=== PATIENT | male | born 1930 | race Caucasian/White ===

== ENCOUNTER 2017-06-16 16:15 | Observation (INO) | payer MEDICARE ==
[2017-06-16 17:04] LABS: Bilirubin Negative (Negative); Blood, Urine Negative (Negative); Glucose, Urine (Dipstick) Negative (Negative); Ketone, Urine Negative (Negative); Nitrite Negative (Negative); Protein, Urine (Dipstick) Negative (Neg-Trace)
[2017-06-16 17:26] LABS: #Eosinphils 0.1 thou/uL (0.0-0.7); #Lymphocytes 1.2 thou/uL (1.20-3.40); #Monocytes 0.6 thou/uL (0.11-0.59); #Neutrophils 4.1 thou/uL (1.40-6.50); %Basophils 0.2 % (0.0-1.0); %Eosinophils 1.9 % (0.0-10.0); %Lymphocytes 20.1 % (21.0-51.0); %Monocytes 10.5 % (0.0-10.0); Hematocrit 35.4 % (42.0-52.0); Mean Platelet Volume 8.5 fL (7.4-10.4); Red Blood Cell (RBC) Count 3.87 mill/uL (4.70-6.10)
[2017-06-16 17:48] LABS: ALT (SGPT) 17 U/L (8-55); AST (SGOT) 16 U/L (5-34); Alkaline Phosphatase 97 U/L (40-150); Anion Gap 17 mmol/L (10-20); BUN (Urea Nitrogen) 48 mg/dL (8.4-25.7); Bilirubin, Total 0.6 mg/dL (0.2-1.2); Calc. Creatinine Clearance 0 mL/min (70-130); Calcium 9.5 mg/dL (7.8-10.44); Carbon Dioxide 24 mmol/L (23-31); Chloride 103 mmol/L (98-107); Estimated GFR-MDRD 44; Globulin 2.8 g/dL (2.4-3.5); Protein, Total 6.4 g/dL (5.8-8.1)
[2017-06-16 17:51] LABS: Troponin I 0.041 ng/mL (< 0.028)
--- NOTE | 2017-06-16 17:57 | RAD ---
PORTABLE CHEST: Date: 06/16/17 PROVIDED CLINICAL HISTORY: Dyspnea. FINDINGS: Correlation made with CT examination of the chest dated 02/17/17. 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 The cardiac silhouette remains enlarged. Median sternotomy changes are again seen. There is persistent elevation of the left hemidiaphragm. There is no lobar consolidation , pleural fluid, or pneumothorax apparent. IMPRESSION: Aneurysmal dilatation of the thoracic aorta, appearing similar to the CT examination of 02/17/17. POS: [facility]
--- NOTE | 2017-06-16 18:16 | CT ---
CT BRAIN: Date: 06/16/17 PROVIDED CLINICAL HISTORY: Altered mental status. FINDINGS: No comparisons. The ventricular system appears prominent, likely on the basis of central atrophy. There is no evidenc e for intracranial hemorrhage or mass effect. The extracranial soft tissues and osseous structures de monstrate no acute abnormality. Partial opacification of the ethmoid air cells is noted with a somewh at expansile appearance to this opacification to the right of midline, nonspecific. Chronic microvasc ular ischemic changes are seen. IMPRESSION: No evidence for intracranial hemorrhage or mass effect. POS: [facility]
[2017-06-16] MEDS ORDERED: Furosemide 40 MG/4 ML VIAL ONE (19:07)
[2017-06-16] MEDS ORDERED: Guaifenesin DM 100-10/5 ML UDCUP PO PRN (20:34)
[2017-06-16] MEDS ORDERED: Insulin Regular 300 UNITS/3 ML VIAL SC PRN (20:37)
[2017-06-16] MEDS ORDERED: Dextrose 50% Abboject 50 ML SYRINGE SLOW IVP PRN (20:37)
[2017-06-16] MEDS ORDERED: Dextrose 5% in Water 1,000 ML IV PRN (20:37)
[2017-06-16] MEDS: Apixaban 5 MG TAB PO SCH (21:14)
[2017-06-16] MEDS ORDERED: Ondansetron HCl/PF 4 MG/2 ML Vial IVP PRN (21:41)
[2017-06-16] MEDS ORDERED: Ondansetron ODT 4 MG TAB SL PRN (21:41)
[2017-06-16 21:52] LABS: Troponin I 0.053 ng/mL (< 0.028)
[2017-06-16] MEDS ORDERED: cefTRIAXone\\ROCEPHIN 1 GM in Sterile Water 10 ML SLOW IVP SCH (22:00)
[2017-06-16 22:14] VITALS: BMI 19.8
--- NOTE | 2017-06-16 23:29 | HP ---
DATE OF ADMISSION: 06/16/2017 ADMITTING PHYSICIAN: Clyde Pedraza M.D. PRIMARY CARE PHYSICIAN: Edd Yao M.D. CHIEF COMPLAINT: Mental status changes as well as weakness. HISTORY OF PRESENT ILLNESS: The patient is a pleasant 86-year-old brought in by his family who repor ts that beginning last night he had become more confused and was actually having visual hallucination s. The patient is at baseline mentally during my exam. His family is at the bedside and reports kristen t he is completely coherent now, but that he has been complaining of sore throat with productive coug h and increased lethargy over the last 2 days. He did fall approximately one month ago and sustained trauma to the left orbit as well as his head. The patient does have a history of CHF and is a patie nt of Dr. Albert. At this time, his complaints are only the increased lethargy, the hallucinations and the productive cough and nasal congestion. REVIEW OF SYSTEMS: The following complete review of systems was negative, unless otherwise mentioned in the HPI or below: Constitutional: Weight loss or gain, sense of well-being, ability to conduct usual activities, exerc ise tolerance. Skin/Breast: Rash, itching, changes in hair growth or loss, nail changes, breast lumps, tenderness, swelling, nipple discharge. Eyes: Vision, double vision, tearing, blind spots, pain. ENT/Mouth: Headaches (location, time of onset, duration, precipitating factors), vertigo, lightheade dness, injury. Vision, double vision, tearing, blind spots, pain, nose bleeding, colds, obstruction, discharge, dental difficulties, gingival bleeding, dentures, neck stiffness, pain, tenderness, masses in thyroid or other areas. Cardiovascular: Precordial pain, substernal distress, palpitations, syncope, dyspnea on exertion, or thopnea, nocturnal paroxysmal dyspnea, edema, cyanosis, hypertension, heart murmurs, varicosities, ph lebitis, claudication. Respiratory: Pain, shortness of breath, wheezing, stridor, cough, hemoptysis, fever or night sweats. Gastrointestinal: Poor appetite, dysphagia, indigestion, abdominal pain, heartburn, eructation, naus ea, vomiting, hematemesis, jaundice, constipation, or diarrhea, abnormal stools (rui-colored, tarry, bloody, greasy, foul smelling), flatulence, hemorrhoids, recent changes in bowel habits. Genitourinary: Urgency, frequency, dysuria, nocturia, hematuria, polyuria, oliguria, unusual (or lucrecia nge in) color of urine, stones, hesitancy, change in size of stream, dribbling, acute retention or in continence, libido, potency. Musculoskeletal: Pain, swelling, redness or heat of muscles or joints, limitation, of motion, muscul ar weakness, atrophy, cramps. Neurologic/Psychiatric: Convulsions, paralyses, tremor, incoordination, paresthesias, difficulties w ith memory of speech, sensory or motor disturbances, or muscular coordination (ataxia, tremor), emoti onal problems, anxiety, depression, previous psychiatric care, unusual perceptions, hallucinations. Allergy/Immunologic: Skin rash, anemia, bleeding tendency, polydipsia, polyuria, intolerance to heat or cold. PAST MEDICAL HISTORY: Significant for congestive heart failure, coronary artery disease, diabetes, d yslipidemia, hypertension, COPD, and abdominal aortic aneurysm. PAST SURGICAL HISTORY: Positive for hemorrhoidectomy, CABG x4, tonsillectomy. PSYCHIATRIC HISTORY: Positive for depression. SOCIAL HISTORY: The patient denies alcohol and illicit drug use. He does not smoke [facility] FAMILY HISTORY: Reviewed and noncontributory to this case. PHYSICAL EXAMINATION: VITAL SIGNS: Vital statics showed a temperature of 97.8, blood pressure 137/61, pulse 112, O2 sats 9 6% on room air with a respiratory rate of 22. GENERAL: He is pleasant, cooperative, alert and oriented. HEAD: Normocephalic. There is a hematoma to left orbit. EYES: PERRL. Extraocular muscles intact. ENT: Mouth is pink, moist, possible exudates in the tonsillar area. NECK: Supple, full range of motion. CHEST: No rhonchi, no wheezes. CARDIOVASCULAR: Sinus tachycardia with a grade 3/6 systolic ejection murmur. ABDOMEN: Nontender, nondistended. No rebound, no guarding. EXTREMITIES: No clubbing or cyanosis. There is 2+ edema bilaterally. NEUROLOGIC: Full range of motion of all extremities. PSYCHIATRIC: Alert and oriented x3. LABORATORY DATA AND IMAGES: Brain CT shows no evidence for intracranial hemorrhage or mass effect. Chest x-ray shows an aneurysmal dilatation of the thoracic aorta similar to an exam performed 017. The cardiac silhouette is enlarged with median sternotomy changes. No lobar consolidation, ple ural fluid, or pneumothorax. BNP of 1975. CK-MB of 0.6, troponin I of 0.04. CMP: Sodium 140, potassium 4.4, chloride 103, carbo n dioxide 24, BUN 48, creatinine 1.5, glucose 196, AST 16, ALT 17, lactic acid level of 4.0, CBC show s a white count of 6.0, hemoglobin 10.9, hematocrit 35.4, platelets 138. Urinalysis yellow and clear , negative for leukocytes, nitrites, ketones. ASSESSMENT: 1. Altered mental status. 2. Viral syndrome. 3. Possible superinfection with bacteria. 4. Coronary artery disease. 5. Hypertension. PLAN: The patient will be admitted to telemetry observation. The patient will be treated empiricall y with Levaquin for possible upper respiratory tract infection. At this time, the patient is tolerat ing p.o. and with history of congestive heart failure, I will hold off on IV fluids at this time. If at any point he becomes hypovolemic, we will use fluid resuscitation as needed. DVT prophylaxis iris l be with SCD devices.
[2017-06-17] MEDS: Acetaminophen 325 MG TAB PO PRN ×2 (01:15→05:11)
[2017-06-17 03:53] VITALS: TEMP 97.7
[2017-06-17] MEDS ORDERED: Insulin Regular 300 UNITS/3 ML VIAL SC PRN (05:01)
[2017-06-17 05:05] LABS: #Eosinphils 0.1 thou/uL (0.0-0.7); #Lymphocytes 1.3 thou/uL (1.20-3.40); #Monocytes 0.6 thou/uL (0.11-0.59); #Neutrophils 4.2 thou/uL (1.40-6.50); %Basophils 0.8 % (0.0-1.0); %Eosinophils 1.8 % (0.0-10.0); %Lymphocytes 20.1 % (21.0-51.0); Hematocrit 31.7 % (42.0-52.0); Mean Platelet Volume 8.5 fL (7.4-10.4); Red Blood Cell (RBC) Count 3.52 mill/uL (4.70-6.10); White Blood Cell (WBC) Count 6.2 thou/uL (4.8-10.8)
[2017-06-17 05:07] LABS: Anion Gap 14 mmol/L (10-20); BUN (Urea Nitrogen) 46 mg/dL (8.4-25.7); Calc. Creatinine Clearance 35 mL/min (70-130); Calcium 9.2 mg/dL (7.8-10.44); Carbon Dioxide 30 mmol/L (23-31); Chloride 99 mmol/L (98-107); Estimated GFR-MDRD 49
[2017-06-17] MEDS ORDERED: Furosemide 40 MG TAB PO SCH (06:00)
[2017-06-17] MEDS ORDERED: Carvedilol 6.25 MG TAB PO SCH (08:00)
--- NOTE | 2017-06-17 08:27 | PDOC.PN ---
- Subjective Encounter Start Date: 06/17/17 Encounter Start Time: 08:30 Subjective: Patient without confusion or hallucinations this AM. Did have what sounded -: like a vivid dream overnight about being sent to [place] for rehab, but then -: waking back up in the hospital room. - Objective MAR Reviewed: Yes Vital Signs & Weight: Vital Signs (12 hours) Temp Pulse Resp BP BP Pulse Ox 06/17/17 03:51 97.7 F 74 16 129/63 129/63 06/16/17 23:40 97.3 F L 77 20 147/69 H 94 L 06/16/17 22:00 97.6 F 111 H 18 127/72 95 06/16/17 20:54 97.6 F 111 H 18 127/72 95 Weight Admit Weight 142 lb Weight 142 lb I&O: 06/16/17 06/17/17 06/18/17 06:59 06:59 06:59 Intake Total 230 Output Total 1400 Balance -1170 Result Diagrams: 06/17/17 04:14 06/17/17 04:15 Additional Labs: Accuchecks 06/16/17 21:13 POC Glucose 245 H Phys Exam - Physical Examination Constitutional: NAD HEENT: moist MMs Respiratory: no wheezing, no rales, no rhonchi Cardiovascular: no significant murmur, irregular Gastrointestinal: soft, positive bowel sounds Neurological: non-focal, moves all 4 limbs Psychiatric: normal affect, A&O x 3 Dx/Plan (1) Encephalopathy acute Code(s): G93.40 - ENCEPHALOPATHY, UNSPECIFIED Status: Acute (2) Upper respiratory tract infection Code(s): J06.9 - ACUTE UPPER RESPIRATORY INFECTION, UNSPECIFIED Status: Acute (3) Coronary artery disease Code(s): I25.10 - ATHSCL HEART DISEASE OF [place] CORONARY ARTERY W/O ANG PCTRS Status: Chronic Qualifiers: Coronary Disease-Associated Artery/Lesion type: koi artery Comment: s/p CABG (4) DM type 2 (diabetes mellitus, type 2) Status: Chronic Comment: (5) HTN (hypertension) Code(s): I10 - ESSENTIAL (PRIMARY) HYPERTENSION Status: Chronic Qualifiers: Hypertension type: essential hypertension Qualified Code(s): I10 - Essential (primary) hypertension (6) Ischemic cardiomyopathy Code(s): I25.5 - ISCHEMIC CARDIOMYOPATHY Status: Chronic (7) S/P CABG x 4 Status: Chronic (8) Atrial flutter with controlled response Code(s): I48.92 - UNSPECIFIED ATRIAL FLUTTER Status: Chronic Comment: Doesn' t want further treatment for this - Plan cont current plan of care, continue antibiotics Patient without evidence of acute bacterial infection, AMI, or CHF exacerba -: tion. URI, likely viral as only source of confusion at this time. No new -: meds. Vitals stable and stable for d/c home. Will send with 4 more days -: of Levaquin in case of a bacterial infection. F/u with Dr. Yao next week * . - Discharge Day Encounter end time: 08:50
[2017-06-17 08:37] VITALS: BP 121/69
[2017-06-17] MEDS: Apixaban 5 MG TAB PO SCH (08:55)
[2017-06-17] MEDS ORDERED: Loratadine 10 MG TAB PO SCH (09:00)
--- NOTE | 2017-06-17 14:50 | DIS ---
PRIMARY CARE PHYSICIAN: Edd Yao M.D. ADMISSION DIAGNOSES: 1. Altered mental status. 2. Viral syndrome. 3. Possible superinfection with bacteria. 4. Coronary artery disease. 5. Hypertension. DISCHARGE DIAGNOSES: 1. Acute encephalopathy, resolved. 2. Upper respiratory tract infection, likely viral. 3. Coronary artery disease. 4. Diabetes mellitus type 2. 5. Hypertension. 6. Ischemic cardiomyopathy. 7. Atrial flutter with controlled response. PROCEDURE: CT of the brain which was normal. CONSULTATIONS: None. HOSPITAL COURSE: This is an 86-year-old white male, frail, with diabetes and heart disease who came in with some hallucinations and weakness along with 2-3 days of upper respiratory tract infection sym ptoms. He had a normal white blood cell count and was afebrile and negative chest x-ray for infectio n, just his persistent thoracic aortic aneurysm. He did have some tachycardia on presentation which resolved. He has had a persistently irregular rate consistent with history of atrial flutter and was rate controlled. The patient did not have any more confusion on presentation to the hospital. He d id have vivid dreams overnight about being sent to rehab in [place]. He had a hard time getting out o f it, then woke back up and was fine. He has been alert and oriented to this morning without any fur ther hallucinations. We have put him on Rocephin in the hospital for possible bacterial superinfecti on. This is being switched to oral Omnicef and he is stable for discharge. DISCHARGE MANAGEMENT: Discharged home. ACTIVITY: As tolerated. DIET: Diabetic, low sodium, fluid restricted diet. FOLLOWUP: Follow up with Dr. Edd Yao next week, Dr. Yao did drop by and see him in the [facility] as well and was updated on his status. DISCHARGE MEDICATIONS: The patient is to resume all home medications, plus Cefdinir 300 mg twice a d ay for another 6 days for a full 7 days of antibiotics.
== END 2017-06-17 11:00 | disposition home or self-care (01) ==
LOC: ERS 16:15 → 2SW 18:40
PROVIDERS: ADMIT Internal Medicine; ATTEND Internal Medicine
DX: G93.40 Encephalopathy, unspecified (principal); J06.9 Acute upper respiratory infection, unspecified; I25.10 Atherosclerotic heart disease of native coronary artery without angina pectoris; E11.9 Type 2 diabetes mellitus without complications; I25.5 Ischemic cardiomyopathy; I48.92 Unspecified atrial flutter; I11.0 Hypertensive heart disease with heart failure; I50.9 Heart failure, unspecified; I71.4 Abdominal aortic aneurysm, without rupture; I25.2 Old myocardial infarction; J45.909 Unspecified asthma, uncomplicated; E78.5 Hyperlipidemia, unspecified; F32.9 Major depressive disorder, single episode, unspecified; Z79.01 Long term (current) use of anticoagulants; Z79.82 Long term (current) use of aspirin; Z79.4 Long term (current) use of insulin; Z79.899 Other long term (current) drug therapy; Z88.1 Allergy status to other antibiotic agents; Z88.8 Allergy status to other drugs, medicaments and biological substances; Z95.1 Presence of aortocoronary bypass graft; Z98.890 Other specified postprocedural states
CPT/HCPCS: 70450; 71010; 80048; 80053; 81003; 82553; 82962; 83605; 83880; 84484 ×3; 85025 ×2; 93005 ×2; 94760; 96374; 96376; 97139; 99285; G0378; 36415; 36416; 93010; A4216; J0696; J1940; J7620

== ENCOUNTER 2017-08-29 16:20 | Inpatient (IN) | payer MEDICARE ==
[2017-08-29 17:12] LABS: Hemoglobin 10.3 g/dL (14.0-18.0); Mean Corpuscular Hemoglobin 25.8 pg (27.0-31.0); Mean Corpuscular Volume 85.8 fl (80.0-94.0); Mean Platelet Volume 8.2 fL (7.4-10.4); Platelet Count 111 thou/uL (130-400); Red Blood Cell (RBC) Count 3.99 mill/uL (4.70-6.10); White Blood Cell (WBC) Count 6.7 thou/uL (4.8-10.8)
--- NOTE | 2017-08-29 17:16 | RAD ---
CHEST ONE VIEW 08/29/17 HISTORY: Hypotension. COMPARISON: 01/14/17. FINDINGS: Leftward rotation of the patient accentuates the descending thoracic aorta. Nevertheless, there is ec clint of the descending thoracic aorta. Heart is enlarged. There are diminished lung volumes likely d ue to poor inspiratory effort. There is a focal opacity in the right upper lobe. There is no pneumoth orax. There is diffuse bone demineralization. There is obscuration of the left hemidiaphragm suggesti ng left lower lobe opacity/infiltrate. IMPRESSION: 1. Elongation of the aorta. 2. Enlarged cardiac silhouette. 3. Right upper lobe opacity. 4. Left lower lobe opacity. POS: [facility]
[2017-08-29 17:33] LABS: CKMB 1.3 ng/mL (0-6.6); Troponin I 0.052 ng/mL (< 0.028)
[2017-08-29 17:34] LABS: #Eosinphils 0.1 thou/uL (0.0-0.7); #Lymphocytes 0.9 thou/uL (1.20-3.40); #Monocytes 0.5 thou/uL (0.11-0.59); #Neutrophils 5.3 thou/uL (1.40-6.50); %Basophils 0.2 % (0.0-1.0); %Eosinophils 1.1 % (0.0-10.0); %Neutrophils 78.8 % (42.0-75.0); Acanthocytes SLIGHT = 1-5 cells (100X) (None Seen); Anisocytosis SLIGHT = 6-15 cells (100X) (0-5/hpf); Hypochromia SLIGHT = 6-15 cells (100X) (0-5/hpf); MDiff Complete? YES; PLT Morphology Comment Appears Decreased
[2017-08-29 17:36] LABS: ALT (SGPT) 46 U/L (8-55); AST (SGOT) 40 U/L (5-34); Albumin 3.3 g/dL (3.4-4.8); Alkaline Phosphatase 148 U/L (40-150); Anion Gap 16 mmol/L (10-20); BUN (Urea Nitrogen) 95 mg/dL (8.4-25.7); Bilirubin, Total 0.9 mg/dL (0.2-1.2); CK (CPK) 107 U/L (30-200); Calc. Creatinine Clearance 0 mL/min (70-130); Calcium 8.7 mg/dL (7.8-10.44); Carbon Dioxide 23 mmol/L (23-31); Chloride 107 mmol/L (98-107); Estimated GFR-MDRD 33; Globulin 3.3 g/dL (2.4-3.5); Glucose 167 mg/dL (83-110); Lipase 12 U/L (8-78); Potassium 4.4 mmol/L (3.5-5.1); Protein, Total 6.6 g/dL (5.8-8.1); Sodium 142 mmol/L (136-145)
[2017-08-29 17:54] LABS: Bilirubin Negative (Negative); Blood, Urine Negative (Negative); Clarity CLEAR (Clear); Glucose, Urine (Dipstick) Negative (Negative); Leukocyte Negative (Negative); Nitrite Negative (Negative); Protein, Urine (Dipstick) Negative (Neg-Trace); Specific Gravity, Urine 1.013 (1.002-1.036); pH, Urine 5.5 (5.0-9.0)
[2017-08-29] MEDS ORDERED: Azithromycin 500 MG VIAL ONE (18:07)
[2017-08-29] MEDS ORDERED: cefTRIAXone\\ROCEPHIN 1 GM, Syringe 0.4 ML in Sterile Water 9.6 ML SLOW IVP SCH (18:15)
[2017-08-29 18:42] LABS: INR-International Normal Ratio 1.5; PTT 41.9 SEC (22.9-36.1); Prothrombin Time 18.8 SEC (12.0-14.7)
--- NOTE | 2017-08-29 18:57 | PDOC.EVN ---
Event Note - Event Note Event Note: H&P DICTATED 1. Acute CHF exacerbation 2. Pneumonia 3. HTN 4. DM type 2 5. HPL plan: see orders
[2017-08-29] MEDS ORDERED: Acetaminophen 325 MG TAB PO PRN (19:05)
[2017-08-29] MEDS ORDERED: Ondansetron HCl/PF 4 MG/2 ML Vial IVP PRN (19:08)
[2017-08-29] MEDS ORDERED: Dextrose 5% in Water 1,000 ML IV PRN (19:14)
[2017-08-29] MEDS ORDERED: Dextrose 50% Abboject 50 ML SYRINGE SLOW IVP PRN (19:14)
[2017-08-29 21:03] LABS: Lactic Acid 1.8 mmol/L (0.5-2.2)
[2017-08-29 21:12] LABS: Troponin I 0.075 ng/mL (< 0.028)
[2017-08-29 22:10] VITALS: BMI 20.4
[2017-08-29] MEDS: Atorvastatin Calcium 40 MG TAB PO SCH (22:11)
--- NOTE | 2017-08-29 22:43 | PDOC.EVN ---
Event Note - Event Note Event Note: hypotensive, asymptomatic, but needs dobutamine drip at this point, will start
[2017-08-29] MEDS: Furosemide 20 MG/2 ML VIAL SLOW IVP SCH (22:52)
[2017-08-29] MEDS: DOBUTAMINE IN DEXTROSE 5 % 250 MG in Premix Bag 1 BAG IV SCH (22:57)
[2017-08-29 23:27] LABS: Troponin I 0.054 ng/mL (< 0.028)
--- NOTE | 2017-08-30 01:35 | HP ---
DATE OF ADMISSION: 08/29/2017 CHIEF COMPLAINTS: Bilateral lower extremity swelling, left upper extremity swelling, hypotension. HISTORY OF PRESENT ILLNESS: This patient is an 87-year-old male with past medical history of coronary artery disease, hypertension, congestive heart failure, chronic kidney disease, now came to the ER because of low blood pressure. The patient was having bilateral lower extremity swelling, a left upper extremity swelling for the past few days. The patient went to the PCP yesterday and the patient had routine blood work done. The patient was found to have a worsening kidney function, so the patient was sent to Dr. Yarbrough's office. Today, the patient went to Dr. Yarbrough's office and found to have blood pressure around systolic 80s and the patient was extremely weak, so the patient was transferred here for further evaluation. Upon ER admission, the patient's blood pressure did improve. The patient denies any chest pain or palpitation, but complaints of cough, cough is with sputum production, white in color. Denies any fever, denies any chills. Complaints of dyspnea. Dyspnea occurs even with minimal exertion. Denies any dizziness, denies any palpitations. PAST SURGICAL HISTORY: CABG and tonsillectomy. PAST MEDICAL HISTORY: Coronary artery disease, hypertension, abdominal aortic aneurysm, and diabetes type 2. MEDICATIONS: Reviewed. ALLERGIES: AMIODARONE and CIPROFLOXACIN. REVIEW OF SYSTEMS: Constitutional: Denies any fever, denies any chills. Positive for fatigue. Eyes: No problems, denies any hearing loss. Neck: Denies any neck pain. Cardiovascular: Denies any chest pain. Respiratory system: Positive for cough. Positive for dyspnea. Musculoskeletal: Positive for bilateral extremity swelling. Cranial nerves system: Denies syncope, denies lightheadedness. Psychiatric: Denies anxiety. Integument: Denies any rash. Genitourinary: Denies dysuria. Musculoskeletal: Positive for bilateral extremity edema. All other review of systems are reviewed and are negative. PHYSICAL EXAMINATION: CONSTITUTIONAL/VITAL SIGNS: At the time of H and P performed, blood pressure is 118/59, pulse ox 95%, respiration rate 18. GENERAL: The patient appears tired and denies patent. NECK: Supple, no JVD. CARDIOVASCULAR: S1, S2 present. Regular rate and rhythm, no murmurs, no rubs, no gallops. RESPIRATORY SYSTEM: Positive for diminished breath sounds present bilaterally. Positive for rhonchi. Positive for crackles. GASTROINTESTINAL: Abdomen is soft, nontender, no guarding, no organomegaly, no masses felt. MUSCULOSKELETAL: Bilateral lower extremity 2+ pitting edema present. PSYCHIATRIC: Mood is appropriate at this time. CRANIAL NERVOUS SYSTEM: Awake, follows commands. Speech clear. LABORATORY DATA: Labs at the time of H and P performed sodium 142, potassium 4.4, chloride 107, CO2 of 23, BUN of 95, creatinine of 1.94. Troponin 0.095, BNP 2874. PT 18.8, INR 1.5. White count 36.7, hemoglobin 10.3, platelet count is 111. ASSESSMENT AND PLAN: The patient is an 87-year-old male. 1. Acute on chronic congestive heart failure exacerbation. Plan is to check 2D echo. Plan is to place the patient on IV Lasix 20 mg q.8 hours. We will go ahead and admit the patient to the IMU. We will consult cardio. Plan to check serial cardiac enzymes also. Plan to consult Cardiology. 2. Acute kidney injury versus chronic kidney disease plus azotemia. Plan to monitor the patient closely. We will hold off IV fluids because the patient appears close to fluid overload. CK might be due to cardiorenal syndrome. We will consult Nephrology to the patient and we will monitor the patient closely. We will repeat basic metabolic panel in the a.m. 3. Pneumonia. Chest x-ray positive for infiltrate. Plan to do CT chest to evaluate the infiltrate. Plan to start patient on IV Rocephin and Zithromax. 4. DM type 2: we willmonitor blood sugars. We will do insulin sliding scale. 5. History of abdominal aortic aneurysm, monitor closely. 6. History of coronary artery disease. Continue aspirin. The case was discussed in detail with the patient. The patient is full code. MTDD
[2017-08-30 05:05] LABS: Anion Gap 16 mmol/L (10-20); BUN (Urea Nitrogen) 86 mg/dL (8.4-25.7); Calc. Creatinine Clearance 30 mL/min (70-130); Calcium 8.3 mg/dL (7.8-10.44); Carbon Dioxide 26 mmol/L (23-31); Chloride 105 mmol/L (98-107); Estimated GFR-MDRD 40; Glucose 221 mg/dL (83-110); Potassium 3.7 mmol/L (3.5-5.1); Sodium 143 mmol/L (136-145)
[2017-08-30 05:06] LABS: #Eosinphils 0.1 thou/uL (0.0-0.7); #Lymphocytes 1.1 thou/uL (1.20-3.40); #Monocytes 0.6 thou/uL (0.11-0.59); #Neutrophils 3.3 thou/uL (1.40-6.50); %Basophils 0.6 % (0.0-1.0); %Eosinophils 1.8 % (0.0-10.0); %Lymphocytes 22.1 % (21.0-51.0); %Monocytes 11.2 % (0.0-10.0); %Neutrophils 64.3 % (42.0-75.0); Acanthocytes SLIGHT = 1-5 cells (100X) (None Seen); Hypochromia SLIGHT = 6-15 cells (100X) (0-5/hpf); MDiff Complete? YES; Mean Corpuscular HGB CONC 29.8 g/dL (32.0-36.0); Mean Corpuscular Hemoglobin 25.3 pg (27.0-31.0); Mean Corpuscular Volume 85.1 fl (80.0-94.0); Mean Platelet Volume 11.2 fL (7.4-10.4); PLT Morphology Comment Appears Decreased; Platelet Count 97 thou/uL (130-400); Polychromasia SLIGHT = 2-3 cells (100X) (0-2/hpf); RBC Distribution Width 18.9 % (11.5-14.5); Red Blood Cell (RBC) Count 3.56 mill/uL (4.70-6.10); White Blood Cell (WBC) Count 5.1 thou/uL (4.8-10.8)
[2017-08-30] MEDS: Furosemide 20 MG/2 ML VIAL SLOW IVP SCH ×3 (06:37→21:39)
[2017-08-30] MEDS: Apixaban 5 MG TAB PO SCH (08:29)
--- NOTE | 2017-08-30 11:32 | CON ---
DATE OF CONSULTATION: 08/30/2017 NEPHROLOGY CONSULT REASON FOR CONSULTATION: Elevated creatinine. HISTORY OF PRESENT ILLNESS: This is a very pleasant 87-year-old gentleman being seen at the [facility] and was sent to the emergency room after it was noted to have an elevated creatinine and hy pertension. The patient's baseline creatinine has been 1.3, which increased to 2, so I was consulted . The patient denies any dyspnea on minimal exertion. PAST MEDICAL HISTORY: Hypertension, coronary artery disease, CABG, tonsillectomy, aortic aneurysm, d yspnea and diabetes mellitus. SOCIAL HISTORY: No alcohol or drug. FAMILY HISTORY: Negative for ESRD. ALLERGIES: Reviewed. HOME MEDICATIONS: Reviewed. REVIEW OF SYSTEMS: Fifteen point review of systems was performed and negative except positives noted above. General: Weakness-. Head: Headache-. Neck: No swelling or lumps. Nose: No epistaxis o r discharge. Eyes: No diplopia or pain. Respiratory: Dyspnea-. Cardiovascular: Chest pain-. Ga strointestinal: Nausea-. Genitourinary/Gynecologic: Hematuria-. Musculoskeletal: No joint pain. Neuropsychiatric Systems: No suicidal ideation. No ideation. Skin: Denies any rash or ulcer. Co nstitutional: No fever or chills. PHYSICAL EXAMINATION: GENERAL: Patient is resting, in mild to moderate distress. VITAL SIGNS: Afebrile, pulse 60, breathing 16, blood pressure 84/52. HEAD/NECK: Normocephalic. Atraumatic. EYES: EOMI. No deformity. EARS: Clear. No ulcers. NOSE: Intact. No lesions. MOUTH: Clear. No discharge. THROAT: Clear. No exudate. LUNGS: Clear. No crackles. CARDIAC: S1, S2. No rub. ABDOMEN: Benign. BS+. GENITALIA/RECTUM: Mills absent. BACK/EXTREMITIES: Lower extremities have 4+ edema. Ulcer- NEUROLOGICAL: Alert and motor intact. SKIN: Rash- Bruise- LYMPHATICS: Edema- Ulcer- LABORATORY DATA: Show creatinine 1.6. ASSESSMENT AND RECOMMENDATIONS: 1. Acute kidney injury with chronic kidney disease due to cardiorenal syndrome, stable. 2. Hypertension, stable. 3. Anemia, stable. 4. Medication based on glomerular filtration rate are appropriate. 5. Congestive heart failure. 6. Aortic regurgitation is one of the other reasons that his blood pressure is low and prognosis is extremely poor. I will consult Cardiology.
[2017-08-30] MEDS: Tamsulosin HCl 0.4 MG CAP PO SCH (12:11)
[2017-08-30] MEDS: DOBUTAMINE IN DEXTROSE 5 % 250 MG in Premix Bag 1 BAG IV SCH (12:11)
[2017-08-30] MEDS ORDERED: cefTRIAXone\\ROCEPHIN 1 GM in Sodium Chloride 0.9% 100 ML IVPB SCH (14:00)
--- NOTE | 2017-08-30 14:12 | PDOC.PN ---
- Subjective Encounter Start Date: 08/30/17 Encounter Start Time: 14:10 Subjective: seen and examined feeling ok - Objective Vital Signs & Weight: Vital Signs (12 hours) Temp Pulse Resp BP BP Pulse Ox 08/30/17 11:30 97.6 F 75 22 H 114/45 L 99 08/30/17 08:00 97.6 F 75 22 H 99 08/30/17 07:26 97.9 F 68 20 119/50 L 91 L 08/30/17 06:00 70 20 104/68 97 08/30/17 04:00 97.0 F L 68 16 84/52 L 99 Weight Weight 146 lb 8 oz I&O: 08/29/17 08/30/17 08/31/17 06:59 06:59 06:59 Intake Total 567 600 Output Total 1550 750 Balance -983 -150 Result Diagrams: 08/30/17 04:14 08/30/17 04:14 Additional Labs: Accuchecks 08/30/17 08/29/17 11:17 22:04 POC Glucose 295 H 179 H Phys Exam - Physical Examination Constitutional: NAD HEENT: PERRLA, moist MMs, sclera anicteric, TM's clear Neck: no nodes, no JVD, supple, full ROM Respiratory: no wheezing, no rales, no rhonchi, clear to auscultation bilateral Cardiovascular: RRR, no significant murmur, no rub Gastrointestinal: soft, non-tender, no distention, positive bowel sounds Musculoskeletal: no edema, pulses present Dx/Plan (1) Hypotension Status: Acute (2) Acute exacerbation of CHF (congestive heart failure) Code(s): I50.9 - HEART FAILURE, UNSPECIFIED Status: Acute (3) Atrial fibrillation with rapid ventricular response Code(s): I48.91 - UNSPECIFIED ATRIAL FIBRILLATION Status: Acute Comment: (4) Cardiomyopathy Code(s): I42.9 - CARDIOMYOPATHY, UNSPECIFIED Status: Acute (5) Coronary artery disease involving coronary bypass graft of [place] heart Code(s): I25.810 - ATHEROSCLEROSIS OF CABG W/O ANGINA PECTORIS Status: Acute (6) First degree AV block Code(s): I44.0 - ATRIOVENTRICULAR BLOCK, FIRST DEGREE Status: Acute (7) AAA (abdominal aortic aneurysm) Code(s): I71.4 - ABDOMINAL AORTIC ANEURYSM, WITHOUT RUPTURE Status: Chronic Comment: (8) Anemia Code(s): D64.9 - ANEMIA, UNSPECIFIED Status: Chronic - Plan plan discussed w/ family, PT/OT, administrator social welfare, respiratory therapy On dobutamine gtt -: Awaiting cardilogy input * .
[2017-08-30] MEDS: cefTRIAXone\\ROCEPHIN 1 GM, Syringe 0.4 ML in Sterile Water 9.6 ML SLOW IVP SCH (14:58)
[2017-08-30] MEDS: HumaLOG 300 UNITS/3 ML VIAL SC PRN (15:01)
--- NOTE | 2017-08-30 15:22 | CON ---
DATE OF ADMISSION: 08/29/2017 DATE OF CONSULTATION: 08/30/2017 INDICATION FOR CONSULTATION: An 87-year-old patient with multiple cardiac problems in the past who w as admitted at this time with what appears to be congestive heart failure exacerbation as well as pne umonia. HISTORY OF PRESENT ILLNESS: This is a very pleasant 87-year-old gentleman who has a long history of coronary artery disease. He has undergone bypass surgery in the past. He has a history of hypertens ion, congestive heart failure, chronic kidney disease. He was at home and over the last several week s, had noted increasing lower extremity edema with cough. He also presented to the emergency room wh ere he became hypotensive, was seen in the primary care physician's office and was then seen by the n ephrologist and was advised to seek an evaluation in the emergency room and was admitted. At this ti me, the blood pressure has stabilized. This has improved. It was 114/45. At this time, his BNP was significantly elevated at 2827. He denied any chest pain. Chest x-ray shows evidence of left upper lobe as well as right lower lobe opacities, most likely compatible with some type of with pneumonia. He also has a history in the past of atrial fibrillation, but this remains in sinus rhythm with PAC s, but did have occasional short runs of nonsustained ventricular tachycardia. His cardiac enzymes a re indeterminate and most likely associated with the COPD with his pneumonia and shortness of breath and lower extremity edema with some congestive heart failure. His troponin I still indeterminate for myocardial infarction. At this time, he remains stable. He is still coughing and has been diuresin g after being given IV diuretics. PAST MEDICAL HISTORY: Significant for the coronary artery disease, status post bypass surgery, tonsi llectomy, history of hypertension, congestive heart failure, chronic kidney disease, dyslipidemia. Nikita martinez has a history of reactive airway disease in the form of asthma. He has history of nephrolithiasis. He has a history of erectile dysfunction, osteoarthritis, history of hemorrhoids. He has a type II I aortic dissection and has been treated medically. He has history of diastolic dysfunction. He has a history of venous reflux. He has had a history of tonsillectomy and adenoidectomy. He had lithot ripsy. He has a history of ischemic cardiomyopathy, stage II chronic kidney disease and history of p aroxysmal atrial fibrillation. MEDICATIONS: Prior to admission included Protonix, Lipitor, Voltaren topical gel, metformin, ipratro pium/albuterol nebulizer, sertraline, vitamin B12 injections, Lantus insulin, Avodart, Flomax, Asmane x, Zyrtec, Tylenol Extra Strength, multivitamins, aspirin 81 mg a day, Eliquis 2.5 mg twice a day, Co reg 6.25 mg b.i.d., Lasix 40 mg 1 b.i.d. At this time, his medications have been reviewed. At this time, he has been given IV diuretics and appears to be diuresing quite relatively well. The Coreg is being held at this time due to hypotension, may also need to hold the Flomax and Avodart should his blood pressure continued to be on the low side. ALLERGIES: He is allergic to AMIODARONE and CIPRO. REVIEW OF SYSTEMS: He complains of fatigue, lower extremity edema and also left upper extremity bradly a. Otherwise, 12-point review of systems relatively unremarkable for this elderly gentleman except f or the shortness of breath and a cough. PHYSICAL EXAMINATION: GENERAL: Reveals an elderly gentleman. VITAL SIGNS: Blood pressure 114/45, heart rate is 75 and regular at this time with occasional PACs, respiratory rate 22. He is afebrile. O2 saturation 99%. HEENT: Shows head to be normocephalic, atraumatic. Carotid pulses are present. I did not hear any significant bruits. CHEST: He has a few scattered rales and also has some late expiratory wheeze noted on the right side . He has rales in the bases. CARDIOVASCULAR: Exam reveals overall regular rhythm. He has an occasional ectopy. There were no gr oss murmurs noted. He has a soft systolic murmur at the apex. ABDOMEN: Soft and nontender. Positive bowel sounds are present. EXTREMITIES: Showed 2+ lower extremity edema below the knees. Also the left upper extremity from th e elbow to the wrist is also edematous. There is a question of whether or not this may be an IV infi ltration. Pedal pulses are difficult to palpate. NEUROLOGIC: The patient appears to be intact except for he is somewhat fatigued. LABORATORY DATA: Shows a BUN of 86 and a creatinine of 1.6. Earlier on arrival, his BUN was 95 with a creatinine 1.94 which is also slightly improved since admission. Hemoglobin is 9 with a hematocri t of 30.3. Potassium 3.7, blood sugar was 221. EKG shows sinus rhythm with a first-degree heart blo ck. He has occasional what appears to be atrial fibrillation. He also had some short runs of nonsus tained ventricular tachycardia lasting less than 5 beats. Chest x-ray shows left upper lobe and righ t lower lobe opacities. He has what appears to be dilated aorta, at least was tortuous. IMPRESSION: 1. Probable pneumonia. This is an elderly gentleman. He has been treated with antibiotics, would a gree with this. 2. History of coronary disease, which appears to be stable at this time. He is status post bypass s urgery. He denies any chest pain. EKG does not show any acute changes indicative of ischemia. His cardiac enzymes are indeterminate and this most likely is due to demand ischemia associated with his pneumonia. 3. Congestive heart failure symptoms with lower extremity edema, would agree with the diuretics at t his time, will need to monitor his electrolytes very carefully. He may be intravascularly volume dep leted with increased BUN and creatinine ratio. 4. History of chronic kidney disease. He may need to have evaluation by the child care education coordinator. 5. History of abdominal aortic aneurysm and also this will be watched very carefully. 6. History of intermittent atrial fibrillation. He should remain on the Eliquis if at all possible. The rate is under reasonable control at this time. We would be more than happy to continue to foll ow the patient with you. At this time, we will need gentle diuresis, elevation of the lower extremit ies as well as right and left upper extremity and treatment of the pneumonia.
--- NOTE | 2017-08-30 15:37 | EKG ---
Test Reason : Blood Pressure : / mmHG Vent. Rate : 071 BPM Atrial Rate : 071 BPM P-R Int : 370 ms QRS Dur : 086 ms QT Int : 420 ms P-R-T Axes : 111 -33 142 degrees QTc Int : 456 ms Sinus rhythm with 1st degree A-V block with Premature atrial complexes Left axis deviation Inferior infarct , age undetermined Anterior infarct , age undetermined Abnormal ECG Confirmed by RALPH PATRICIO, SHIRIN Tamayo ([id number]), advertising editor MARLA ENAMORADO ([id number]) on 08/30/2017 3:37:24 PM Referred By: Confirmed By:SHIRIN ROSAS MD
--- NOTE | 2017-08-30 17:10 | CON ---
DATE OF CONSULTATION: 08/30/2017 SERVICE: Pulmonary Medicine. REASON FOR CONSULTATION: Pneumonia. HISTORY OF PRESENT ILLNESS: Patient is an 87-year-old white male with past medical history significant for an ascending and descending thoracic aortic aneurysm. This has demonstrated stability over a period of 2 years from 2016- 2017. Over the last two weeks, he has had increasing dysphagia. He felt like food was suddenly starting to get hung up in the back of his throat. This was choked him up creating a little bit of nausea. For the past 1 week, he has had increasing cough. Initially, it was minimal. It became more severe as time went on. It has remained completely nonproductive. He does not even feel like he has any crud inside of his chest to get up. He currently denies any fevers or chills. He has no shortness of breath, nausea or vomiting. He simply had profound weakness. This prompted him to present to his primary care physician. He was also sent to the Emergency Department. They did a chest x-ray which demonstrated an infiltrate in the right upper lobe. Since being in the hospital , he does not feel much improved, although the nausea has resolved somewhat. PAST MEDICAL HISTORY: 1. Thoracic aortic aneurysm. 2. Coronary artery disease. 3. Hypertension. 4. Type 2 diabetes mellitus. 5. Dyslipidemia. PAST SURGICAL HISTORY: 1. Coronary artery bypass graft. 2. Tonsillectomy. ALLERGIES: AMIODARONE, CIPROFLOXACIN. MEDICATIONS: List of inpatient his inpatient medications were reviewed. I discontinued his dobutamine. FAMILY HISTORY: Noncontributory. SOCIAL HISTORY: Negative for alcohol, tobacco or illicit drug use. He has no exposure to chemicals, dust asbestos or tuberculosis. REVIEW OF SYSTEMS: Including general, head, ears, eyes, nose, throat, cardiovascular, respiratory, GI, , musculoskeletal, neurologic and skin is negative besides mentioned in the HPI. PHYSICAL EXAMINATION: VITAL SIGNS: Afebrile, pulse 75, blood pressure 114/45, respirations 22, saturation 99% on 3 liters nasal cannula. GENERAL: The patient is awake and alert. No apparent distress. LUNGS: Decent air entry. I do not hear much in the way of crackles. There is no prolonged expiratory phase. Expiratory wheezing is present on forced exhalation. HEART: Normal rate, regular. ABDOMEN: Soft, nontender, nondistended. Bowel sounds are positive. MUSCULOSKELETAL: No cyanosis or clubbing. There is diffuse 3+ to 4+ pitting throughout. GENITOURINARY: No Mills. NEUROLOGIC: Grossly nonfocal. LABORATORY DATA: WBC 5.1, hemoglobin 9.0, platelets 97,000. INR 1.5. Creatinine 1.63, which is not far from what his baseline of 1.1-1.3. Troponin 0.05 and gently down trending. Lactate was originally 3.5, but is now 1.8. Liver function studies are essentially unremarkable. BNP 2800. Urinalysis is essentially unremarkable. IMAGING: Chest x-ray demonstrates infiltrate in the right upper lobe. There is also a density in the left lower lobe. There is probably pleural disease at that location too. Mediastinum is extraordinarily enlarged. His previous CT dissection protocol demonstrated an ascending and descending thoracic aortic aneurysm. It had previously demonstrated stability. Compared to 05/2017, the mediastinal silhouette is about the same in size. ASSESSMENT: 1. Acute hypoxic respiratory failure. 2. Acute on chronic systolic heart failure. 3. Moderate aortic regurgitation. 4. Community-acquired pneumonia, possible without systemic inflammatory response syndrome criteria. 5. Ascending and descending thoracic aortic aneurysm, previously stable. DISCUSSION AND PLAN: Agree with our antibiotics directed at community-acquired pneumonia. That being said, he really does not have clinical characteristics suggestive of an acute infectious process. He has had 2 weeks of increasing dysphagia and 1 week of increasing cough. My fear is that he could have an evolving ascending thoracic aortic aneurysm. He was previously told he was not a surgical candidate and understands that if this thing does progress, there is not much that we would be able to do for it. We can entertain repeat imaging if the patient's creatinine starts to improve down to baseline a touch more. I will interrupt the dobutamine as his blood pressures have firmed up a little bit. Once he can tolerate it, I think it would be reasonable to beta block his heart rate down as low as he can tolerate. Pulmonary Critical Care will continue to follow while the patient remains in this location, but he will need to stay here for the time being. 70 minutes have been devoted to this patient in various activities. I personally reviewed all imaging studies and laboratory data noted within this document. For greater than fifty percent of this time, I was interacting with the patient at the bedside or coordinating care with the care team. For the remainder of the time I was immediately available to the patient in the hospital unit. LINDSAY
[2017-08-30] MEDS: Azithromycin 500 MG in Sodium Chloride 0.9% 250 ML 250 ML IVPB SCH (17:24)
[2017-08-30] MEDS: Atorvastatin Calcium 40 MG TAB PO SCH (20:58)
[2017-08-31] MEDS: Acetaminophen 325 MG TAB PO PRN ×2 (01:28→11:51)
[2017-08-31] MEDS: Furosemide 20 MG/2 ML VIAL SLOW IVP SCH ×3 (05:46→17:16)
[2017-08-31] MEDS: Apixaban 5 MG TAB PO SCH (08:33)
--- NOTE | 2017-08-31 09:50 | PDOC.PN ---
- Subjective Encounter Start Date: 08/31/17 Encounter Start Time: 09:48 CC: Dyspnea Sub: Pt c/o cough - Objective Vital Signs & Weight: Vital Signs (12 hours) Temp Pulse Resp BP Pulse Ox 08/31/17 07:41 97.5 F L 60 16 101/56 L 100 08/31/17 07:25 97.6 F 72 20 96 08/31/17 05:40 97.6 F 72 20 104/52 L 96 08/31/17 03:48 97.4 F L 100 22 H 105/42 L 95 08/30/17 23:29 97.4 F L 114 H 20 118/57 L 93 L Weight Weight 147 lb 12.8 oz I&O: 08/30/17 08/31/17 09/01/17 06:59 06:59 06:59 Intake Total 567 2292 360 Output Total 1550 3210 Balance -983 -918 360 Result Diagrams: 08/31/17 10:09 08/31/17 10:09 Additional Labs: Accuchecks 08/30/17 08/30/17 08/30/17 19:55 15:02 11:17 POC Glucose 121 H 304 H 295 H Dx/Plan - Plan - Physical Examination Constitutional: NAD HEENT: PERRLA, moist MMs, sclera anicteric, TM's clear Neck: no nodes, no JVD, supple, full ROM Respiratory: no wheezing, no rales, no rhonchi, diminished at bases, occaional crackles Cardiovascular: RRR, no significant murmur, no rub Gastrointestinal: soft, non-tender, no distention, positive bowel sounds Musculoskeletal: no edema, pulses present Dx/Plan (1) Hypotension Status: Acute (2) Acute exacerbation of CHF (congestive heart failure) Code(s): I50.9 - HEART FAILURE, UNSPECIFIED Status: Acute (3) Atrial fibrillation with rapid ventricular response Code(s): I48.91 - UNSPECIFIED ATRIAL FIBRILLATION Status: Acute Comment: (4) Cardiomyopathy Code(s): I42.9 - CARDIOMYOPATHY, UNSPECIFIED Status: Acute (5) Coronary artery disease involving coronary bypass graft of bad [place] heart Code(s): I25.810 - ATHEROSCLEROSIS OF CABG W/O ANGINA PECTORIS Status: Acute (6) First degree AV block Code(s): I44.0 - ATRIOVENTRICULAR BLOCK, FIRST DEGREE Status: Acute (7) AAA (abdominal aortic aneurysm) Code(s): I71.4 - ABDOMINAL AORTIC ANEURYSM, WITHOUT RUPTURE Status: Chronic Comment: (8) Anemia Code(s): D64.9 - ANEMIA, UNSPECIFIED Status: Chronic - Plan Continue iv rocephin and zithromax. BUN & Creatinine improving slowly. Repeat labs pending. Strict I&O.Dose meds renally Monitor HR closley. Off dobutamine drip Appreciate all consultants input D/W pt & RN
[2017-08-31 10:18] LABS: #Eosinphils 0.1 thou/uL (0.0-0.7); #Lymphocytes 0.9 thou/uL (1.20-3.40); #Monocytes 0.6 thou/uL (0.11-0.59); #Neutrophils 4.5 thou/uL (1.40-6.50); %Basophils 0.3 % (0.0-1.0); %Eosinophils 2.3 % (0.0-10.0); %Lymphocytes 14.3 % (21.0-51.0); %Monocytes 9.2 % (0.0-10.0); %Neutrophils 73.9 % (42.0-75.0); Hemoglobin 9.1 g/dL (14.0-18.0); Mean Corpuscular HGB CONC 29.9 g/dL (32.0-36.0); Mean Corpuscular Hemoglobin 24.8 pg (27.0-31.0); Mean Corpuscular Volume 83.1 fl (80.0-94.0); Mean Platelet Volume 11.4 fL (7.4-10.4); Platelet Count 97 thou/uL (130-400); RBC Distribution Width 18.7 % (11.5-14.5); Red Blood Cell (RBC) Count 3.68 mill/uL (4.70-6.10); White Blood Cell (WBC) Count 6.1 thou/uL (4.8-10.8)
[2017-08-31 10:36] LABS: Anion Gap 12 mmol/L (10-20); BUN (Urea Nitrogen) 53 mg/dL (8.4-25.7); Calc. Creatinine Clearance 32 mL/min (70-130); Carbon Dioxide 28 mmol/L (23-31); Chloride 101 mmol/L (98-107); Estimated GFR-MDRD 44; Glucose 318 mg/dL (83-110); Potassium 3.9 mmol/L (3.5-5.1); Sodium 137 mmol/L (136-145)
[2017-08-31] MEDS: Tamsulosin HCl 0.4 MG CAP PO SCH (11:16)
[2017-08-31] MEDS: HumaLOG 300 UNITS/3 ML VIAL SC PRN ×2 (11:53→17:16)
[2017-08-31] MEDS: Benzonatate 100 MG CAP PO PRN ×2 (13:39→21:29)
[2017-08-31] MEDS: cefTRIAXone\\ROCEPHIN 1 GM, Syringe 0.4 ML in Sterile Water 9.6 ML SLOW IVP SCH (13:39)
--- NOTE | 2017-08-31 14:02 | PRG ---
DATE OF SERVICE: 08/31/2017 SUBJECTIVE: An 87-year-old gentleman being seen for acute kidney injury. The patient has a persiste nt cough. PHYSICAL EXAMINATION: GENERAL: Patient is resting. VITAL SIGNS: Afebrile, pulse 94, breathing 16, blood pressure 111/60. HEAD/NECK: Normocephalic. Atraumatic. EYES: EOMI. No deformity. EARS: Clear. No ulcers. NOSE: Intact. No lesions. MOUTH: Clear. No discharge. THROAT: Clear. No exudate. LUNGS: Clear. No crackles. CARDIAC: S1, S2. No rub. ABDOMEN: Benign. BS+. GENITALIA/RECTUM: Mills absent. BACK/EXTREMITIES: Edema 4+ NEUROLOGICAL: Alert and motor intact. SKIN: Rash- Bruise- LYMPHATICS: Edema- Ulcer- LABORATORY DATA: Show hemoglobin 9.1, creatinine 1.5. ASSESSMENT AND RECOMMENDATIONS: 1. Chronic kidney disease, stage 3, stable. 2. Acute kidney injury due to cardiorenal syndrome. 3. Anemia, stable. 4. Medications based on glomerular filtration rate are appropriate. No indication for dialysis at t his time.
--- NOTE | 2017-08-31 15:43 | PRG ---
DATE OF SERVICE: 08/31/2017 SERVICE: Pulmonary Medicine. INTERVAL HISTORY: The patient is doing fine from a respiratory standpoint. His breathing is fine. He has no shortness of breath. He continues to have cough. This remains nonproductive. He denies a ny current fevers, chills, nausea, vomiting or chest discomfort. Otherwise, there has been no interv al change to his condition. PHYSICAL EXAMINATION: VITAL SIGNS: Afebrile, pulse 94, blood pressure 111/60, respirations 22, saturation 92% on 3 liters nasal cannula. GENERAL: The patient is awake and alert. He is in no apparent distress. HEENT: Normocephalic, atraumatic. Sclerae are white. Conjunctivae pink. Oral mucosa is moist with out lesions. LUNGS: Decent air entry. I do not appreciate crackles anteriorly. There is no prolonged expiratory phase, wheezing or rhonchi. HEART: Normal rate and regular. ABDOMEN: Soft, nontender, nondistended. Bowel sounds are positive. MUSCULOSKELETAL: No cyanosis or clubbing. Previously, there was 3 or 4+ pitting in the bilateral lo wer extremities. This is apparently redistributed as he now has trace to 1+ pitting in the bilateral lower extremities, and 2+ pitting throughout, otherwise. LABORATORY DATA: WBC 6.1, hemoglobin 9.1, platelets 97,000 and roughly stable. Neutrophil count rem ains within the normal limits. Creatinine 1.52 and gently down trending. Basic metabolic profile is otherwise unremarkable. Urinalysis is negative. Blood cultures x2 are negative. ASSESSMENT: 1. Acute hypoxic respiratory failure, improving. 2. Acute on chronic systolic heart failure. 3. Moderate aortic regurgitation. 4. Ascending and descending thoracic aortic aneurysm, previously stable. 5. Community-acquired pneumonia, possible without systemic inflammatory response syndrome. DISCUSSION AND PLAN: We will continue our antibiotics. We are waiting for the kidney function to im prove a little bit. Once it does, advanced imaging of the chest may be considered. Either way, he w ould not be a candidate for any type of surgical intervention if his thoracic aortic aneurysm is evol ving. We will continue to diurese the patient as aggressively as he tolerates. Repeat chemistries a nd magnesium will be performed tomorrow morning.
[2017-08-31] MEDS ORDERED: Calcium Gluc 4.6 MEQ/10 ML (100 MG/ML) SLOW IVP SCH (16:00)
[2017-08-31] MEDS: Azithromycin 500 MG in Sodium Chloride 0.9% 250 ML 250 ML IVPB SCH (17:16)
[2017-08-31] MEDS: Atorvastatin Calcium 40 MG TAB PO SCH (20:43)
[2017-09-01] MEDS: Furosemide 20 MG/2 ML VIAL SLOW IVP SCH ×3 (00:28→11:43)
[2017-09-01 04:54] LABS: Anion Gap 12 mmol/L (10-20); BUN (Urea Nitrogen) 40 mg/dL (8.4-25.7); Calc. Creatinine Clearance 37 mL/min (70-130); Calcium 8.3 mg/dL (7.8-10.44); Carbon Dioxide 31 mmol/L (23-31); Chloride 99 mmol/L (98-107); Estimated GFR-MDRD 50; Glucose 145 mg/dL (83-110); Magnesium 1.5 mg/dL (1.6-2.6); Phosphorus 2.3 mg/dL (2.3-4.7); Potassium 3.7 mmol/L (3.5-5.1); Sodium 138 mmol/L (136-145)
[2017-09-01 05:01] LABS: #Eosinphils 0.2 thou/uL (0.0-0.7); #Lymphocytes 1.4 thou/uL (1.20-3.40); #Monocytes 0.7 thou/uL (0.11-0.59); #Neutrophils 4.7 thou/uL (1.40-6.50); %Basophils 0.1 % (0.0-1.0); %Eosinophils 2.6 % (0.0-10.0); %Lymphocytes 19.9 % (21.0-51.0); %Monocytes 9.7 % (0.0-10.0); %Neutrophils 67.7 % (42.0-75.0); Acanthocytes SLIGHT = 1-5 cells (100X) (None Seen); Anisocytosis SLIGHT = 6-15 cells (100X) (0-5/hpf); Hemoglobin 9.5 g/dL (14.0-18.0); MDiff Complete? YES; Mean Corpuscular HGB CONC 29.2 g/dL (32.0-36.0); Mean Corpuscular Hemoglobin 24.9 pg (27.0-31.0); Mean Corpuscular Volume 85.5 fl (80.0-94.0); Mean Platelet Volume 7.6 fL (7.4-10.4); PLT Morphology Comment Appears Decreased; Platelet Count 116 thou/uL (130-400); Polychromasia SLIGHT = 2-3 cells (100X) (0-2/hpf); RBC Distribution Width 19.1 % (11.5-14.5); White Blood Cell (WBC) Count 6.9 thou/uL (4.8-10.8)
[2017-09-01] MEDS: Benzonatate 100 MG CAP PO PRN (05:57)
[2017-09-01] MEDS: Apixaban 5 MG TAB PO SCH (08:00)
--- NOTE | 2017-09-01 10:04 | DIS ---
DATE OF ADMISSION: 08/29/2017 DATE OF TRANSFER: 09/01/2017 DISCHARGE DIAGNOSES: 1. Terminal illness. 2. Acute hypoxic respiratory failure. 3. Acute on chronic congestive heart failure with ejection fraction of 20%-25% with moderate pleural effusions. 4. Severe mitral regurgitation and tricuspid regurgitation. 5. Ascending and descending thoracic aortic aneurysm. 6. Community-acquired pneumonia. 7. Coronary artery disease, status post bypass. 8. Anemia. 9. Paroxysmal atrial fibrillation. 10. DO NOT RESUSCITATE. PLAN: Transfer to hospice care. BRIEF HISTORY: This is an 87-year-old white male, who I followed in the office for several years. Nikita martinez has done quite well. However, he has multiple medical problems including the ones mentioned above. Over the past several months, his condition has been deteriorating. He presented to the office rec ently with increasing weakness, decreased appetite, weight loss, and increasing shortness of breath. He was seen by Dr. Yarbrough, who recommended admission for congestive heart failure. He was diffusely e dematous. HOSPITAL COURSE: The patient was started on antibiotics for community-acquired pneumonia. His eject ion fraction on echo was noted to be 20%-25%. A significant ascending and descending aortic aneurysm was noted. The patient's prognosis is very poor. A long discussion with the . The , at th is time, has decided to not pursue anymore medical intervention. The and family are desiring ho spice care. They want him to be very comfortable. They realize his prognosis is very poor. Surgica l intervention would be extremely risky and not recommended. Plan is to discharge to hospice and pro vide comfort care. I had a nice long discussion with the and the youngest daughter.
--- NOTE | 2017-09-01 10:55 | PRG ---
Patient Name: SALVATORE CHACON Date of service: 09/01/2017 Subjective: Patient was seen and examined at bedside and overnight events noted. Patient denies any shortness of breath or chest pain or palpitation. No history of nausea or vomiting or diarrhea or fever or chills or cramps. Objective: General: This is an elderly male in no apparent distress. Vital signs: Temperature 98.7, pulse 90, respiratory rate 18, blood pressure 106/47. HEENT: Atraumatic, normocephalic. Oral mucosa is moist. Neck: Supple. Cardiovascular: S1 S2 heard. Rate and rhythm regular. Respiratory: Clear to auscultation. Gastrointestinal: Abdomen is soft. Musculoskeletal: No tenderness. No edema. Dermatologic: No skin rash. Neurologic: Alert and awake and oriented X3. No focal neurologic deficits. Moving all the extremit ies. Psychiatric: Mood and affect normal. LABORATORY DATA: Potassium is 3.7, BUN 40, creatinine is 1.3. ASSESSMENT AND PLAN: 1. Chronic kidney disease stage 3, stable. 2. Cardiorenal syndrome. 3. Anemia. 4. Edema. The family wishes to have hospice. I will sign off.
--- NOTE | 2017-09-01 11:10 | PRG ---
DATE OF SERVICE: 09/01/2017 SERVICE: Pulmonary Medicine INTERVAL HISTORY: The patient is doing great from a respiratory standpoint. He is breathing comfort ably. He denies any current fevers, chills, nausea or vomiting. He has made the decision that he wa nts to go home with hospice. I think it is perfectly reasonable given his advanced debility. Otherw ise, there has been no change to his condition. PHYSICAL EXAMINATION: VITAL SIGNS: Afebrile, pulse 93, blood pressure 106/47, respirations 18, saturation 97% on 2 liters nasal cannula. GENERAL: The patient is awake, alert, no apparent distress. LUNGS: Reduced air entry bilaterally. Crackles are present. No prolonged expiratory phase or wheez ing is appreciated. HEART: Normal rate, regular. ABDOMEN: Soft, nontender, nondistended. Bowel sounds are positive. MUSCULOSKELETAL: No cyanosis or clubbing. There is a diffuse pitting throughout. GENITOURINARY: No Mills. NEUROLOGIC: Grossly nonfocal. LABORATORY DATA: WBC 6.9, hemoglobin 9.5, platelets 116,000. Creatinine 1.34, which continues to im prove, BUN 40. Basic metabolic profile is otherwise unremarkable. Magnesium 1.5, phosphorus falls a t the lower limits of what I would consider normal. Blood cultures x2 are unremarkable. ASSESSMENT: 1. Acute hypoxic respiratory failure, resolving. 2. Acute on chronic systolic heart failure. 3. Moderate aortic regurgitation. 4. Ascending and descending thoracic aortic aneurysm, previously stable. 5. Community-acquired pneumonia, suspected. DISCUSSION AND PLAN: The patient can complete a 5-day course of antibiotics. I will replace his pot assium, magnesium, and phosphorus today. Pulmonary Critical Care will continue to follow if the cassandra ent remains in this location, but it is my understanding that he would like to transition home on hos pice. As such, we will make that happen.
[2017-09-01] MEDS ORDERED: Magnesium Sulfate 4 GM in Sodium Chloride 0.9% 250 ML 250 ML IVPB SCH (11:15)
[2017-09-01] MEDS ORDERED: Potassium Phosphate 30 MMOL in Sodium Chloride 0.9% 500 ML IVPB SCH (11:15)
[2017-09-01] MEDS: Tamsulosin HCl 0.4 MG CAP PO SCH (11:43)
[2017-09-01] MEDS: HumaLOG 300 UNITS/3 ML VIAL SC PRN (11:59)
[2017-09-01 12:24] VITALS: BP 103/66; TEMP 97.8
[2017-09-01] MEDS ORDERED: Benzonatate 100 MG CAP PO SCH (14:00)
[2017-09-01] MEDS ORDERED: Cefdinir 300 MG CAP PO SCH (21:00)
[2017-09-02] MEDS ORDERED: Azithromycin 250 MG TAB PO SCH (09:00)
--- NOTE | 2017-09-04 17:26 | EKG ---
Test Reason : RHYTHM CHANGE Blood Pressure : / mmHG Vent. Rate : 113 BPM Atrial Rate : 108 BPM P-R Int : 000 ms QRS Dur : 080 ms QT Int : 340 ms P-R-T Axes : 000 -33 137 degrees QTc Int : 466 ms Atrial fibrillation with rapid ventricular response Left axis deviation Inferior infarct (cited on or before 27-MAR-2015) Anterolateral infarct (cited on or before 27-MAR-2015) Abnormal ECG When compared with ECG of 29-AUG-2017 16:31, Atrial fibrillation has replaced Sinus rhythm Vent. rate has increased BY 42 BPM Questionable change in initial forces of Lateral leads Confirmed by DR. Jocelyn KAN ([id number]) on 09/04/2017 5:25:55 PM Referred By: CADE Confirmed By:DR. Jocelyn KAN
== END 2017-09-01 15:05 | disposition hospice, inpatient (51) | DRG 291 ==
LOC: ERS 16:20 → IMCU/EMU 18:00
PROVIDERS: ADMIT Internal Medicine; ATTEND Internal Medicine
DX: I13.0 Hypertensive heart and chronic kidney disease with heart failure and stage 1 through stage 4 chronic kidney disease, or unspecified chronic kidney disease (principal); J18.9 Pneumonia, unspecified organism; J96.01 Acute respiratory failure with hypoxia; N17.9 Acute kidney failure, unspecified; I95.9 Hypotension, unspecified; E11.22 Type 2 diabetes mellitus with diabetic chronic kidney disease; D51.9 Vitamin B12 deficiency anemia, unspecified; I71.2 Thoracic aortic aneurysm, without rupture; I48.0 Paroxysmal atrial fibrillation; I25.5 Ischemic cardiomyopathy; I24.8 Other forms of acute ischemic heart disease; I50.23 Acute on chronic systolic (congestive) heart failure; I25.10 Atherosclerotic heart disease of native coronary artery without angina pectoris; Z88.1 Allergy status to other antibiotic agents; Z88.8 Allergy status to other drugs, medicaments and biological substances; I35.1 Nonrheumatic aortic (valve) insufficiency; N18.3 Chronic kidney disease, stage 3 (moderate); Z51.5 Encounter for palliative care; Z66 Do not resuscitate; Z95.1 Presence of aortocoronary bypass graft; Z79.01 Long term (current) use of anticoagulants; Z79.82 Long term (current) use of aspirin; Z79.4 Long term (current) use of insulin; I44.0 Atrioventricular block, first degree; F32.9 Major depressive disorder, single episode, unspecified; E78.00 Pure hypercholesterolemia, unspecified
CPT/HCPCS: 36415; 36416; 71045; 80048; 80053; 81001; 81003; 82550; 82553; 83605; 83690; 83735; 83880; 84100; 84443; 84484; 85025; 85610; 85730; 87040; 93005; 93010; 93306; 94760; 96365; 96375; 99214; A4216; G0463; G8978-GP-CL; G8979-GP-CJ; J0456; J0696; J1250; J3475; J7050